=== PATIENT | male | born 1955 | race Caucasian/White ===

== ENCOUNTER 2018-12-30 21:20 | Inpatient (IN) | payer BC ==
[2018-12-30] MEDS ORDERED: NA PHOSPHATE/BIPHOS 133 ML ENEMA PR (22:00)
[2018-12-30] MEDS ORDERED: MAGNESIUM HYDROXIDE 30ML CUP GTB (22:00)
[2018-12-30] MEDS ORDERED: BISACODYL 10 MG SUPP PR (22:00)
[2018-12-30] MEDS ORDERED: PENDING SANTYL ORDER FOR WOUND CARE XX (23:00)
[2018-12-31] MEDS: ALBUTEROL 0.083% (NEB) 2.5 MG/3 ML AMP HHN ×6 (00:17→20:00)
[2018-12-31 07:21] LABS: ADD MAN DIFF? NO
[2018-12-31 07:24] LABS: BASOPHIL # 0.1 10^3/ul (0.0-0.1); BASOPHILS % 0.9 % (0.0-2.0); EOSINOPHILS # 0.8 10^3/ul (0.0-0.5); EOSINOPHILS % 6.9 % (0.0-7.0); HEMATOCRIT 40.6 % (42.0-52.0); LYMPHOCYTES # 2.6 10^3/ul (0.8-2.9); LYMPHOCYTES % 21.3 % (15.0-51.0); MEAN CORPUSCULAR HEMOGLOBIN 29.2 pg (29.0-33.0); MEAN CORPUSCULAR VOLUME 91.2 fl (82.0-101.0); MEAN PLATELET VOLUME 12.6 fl (7.4-10.4); MONOCYTES % 8.5 % (0.0-11.0); NEUTROPHIL # 7.4 10^3/ul (1.6-7.5); NEUTROPHILS % 61.8 % (39.0-77.0); PLATELET COUNT 346 10^3/UL (140-415); RED BLOOD COUNT 4.45 10^6/ul (4.70-6.10); RED CELL DISTRIBUTION WIDTH 16.4 % (11.5-14.5)
[2018-12-31 07:43] LABS: ALANINE AMINOTRANSFERASE 42 IU/L (13-69); ALBUMIN 3.6 g/dl (3.3-4.9); ALKALINE PHOSPHATASE 73 IU/L (42-121); ANION GAP 10 (5-13); ASPARTATE AMINO TRANSFERASE 28 IU/L (15-46); BILIRUBIN,INDIRECT 0.5 mg/dl (0-1.1); BILIRUBIN,TOTAL 0.5 mg/dl (0.2-1.3); BLOOD UREA NITROGEN 34 mg/dl (7-20); CALCIUM 9.6 mg/dl (8.4-10.2); CARBON DIOXIDE 28 mmol/L (21-31); CHLORIDE 106 mmol/L (97-110); CREATININE 1.09 mg/dl (0.61-1.24); Estimated GFR > 60 mL/min (>60); GLUCOSE 127 mg/dl (70-220); POTASSIUM 4.1 mmol/L (3.5-5.1); SODIUM 144 mmol/L (135-144); TOTAL PROTEIN 7.2 g/dl (6.1-8.1)
[2018-12-31] MEDS: ASPIRIN 81 MG TAB GTB (08:28)
[2018-12-31] MEDS: FAMOTIDINE 20 MG TAB GTB ×2 (08:28→21:40)
[2018-12-31] MEDS: DOCUSATE SODIUM 10 MG/ML (10ML CUP) GTB ×2 (08:28→21:40)
[2018-12-31] MEDS: NICOTINE (7 MG/24 HR) PATCH TRANSDERM (08:28)
[2018-12-31] MEDS: CHOLECALCIFEROL 2,000 UNIT CAP GTB (08:28)
[2018-12-31] MEDS: CYANOCOBALAMIN 500 MCG TAB GTB (08:28)
[2018-12-31] MEDS: CLOPIDOGREL 75 MG TAB GTB (08:28)
[2018-12-31] MEDS: LISINOPRIL 10 MG TAB GTB (08:29)
[2018-12-31] MEDS: POLYETHYLENE GLYCOL 17 GM PACKET GTB (08:29)
[2018-12-31 16:18] LABS: ADD UMIC NO; UR ASCORBIC ACID 40 mg/dL (NEGATIVE); UR BACTERIA FEW /HPF (NONE SEEN); UR BILIRUBIN (Dip) NEGATIVE (NEGATIVE); UR BLOOD (Dip) NEGATIVE (NEGATIVE); UR CLARITY SLIGHTLY CLOUDY (CLEAR); UR COLOR YELLOW (YELLOW); UR GLUCOSE (Dip) NEGATIVE (NEGATIVE); UR KETONES (Dip) NEGATIVE (NEGATIVE); UR LEUKOCYTE ESTERASE (Dip) NEGATIVE Leu/ul (NEGATIVE); UR NITRITE (Dip) NEGATIVE (NEGATIVE); UR RBC 1 /HPF (0-5); UR SPECIFIC GRAVITY (Dip) 1.019 (1.003-1.030); UR SQUAMOUS EPITHELIAL CELL FEW /HPF (FEW); UR TOTAL PROTEIN (Dip) NEGATIVE (NEGATIVE); UR UROBILINOGEN (Dip) 1+ mg/dL (NEGATIVE); UR WBC 1 /HPF (0-5)
[2018-12-31] MEDS: SENNA TAB GTB (21:40)
[2018-12-31] MEDS: ATORVASTATIN 80 MG TAB GTB (21:40)
[2019-01-01] MEDS: ALBUTEROL 0.083% (NEB) 2.5 MG/3 ML AMP HHN ×6 (01:00→20:01)
[2019-01-01 07:46] LABS: ADD MAN DIFF? NO
[2019-01-01 07:53] LABS: BASOPHIL # 0.1 10^3/ul (0.0-0.1); BASOPHILS % 0.8 % (0.0-2.0); EOSINOPHILS # 0.8 10^3/ul (0.0-0.5); EOSINOPHILS % 6.3 % (0.0-7.0); HEMOGLOBIN 13.5 g/dl (14.0-18.0); LYMPHOCYTES # 2.6 10^3/ul (0.8-2.9); LYMPHOCYTES % 19.5 % (15.0-51.0); MEAN CORPUSCULAR HEMOGLOBIN 29.2 pg (29.0-33.0); MEAN CORPUSCULAR HGB CONC 32.1 g/dl (32.0-37.0); MEAN CORPUSCULAR VOLUME 90.9 fl (82.0-101.0); MEAN PLATELET VOLUME 12.9 fl (7.4-10.4); MONOCYTE # 1.1 10^3/ul (0.3-0.9); MONOCYTES % 8.2 % (0.0-11.0); NEUTROPHIL # 8.7 10^3/ul (1.6-7.5); NEUTROPHILS % 64.8 % (39.0-77.0); PLATELET COUNT 328 10^3/UL (140-415); RED BLOOD COUNT 4.62 10^6/ul (4.70-6.10); RED CELL DISTRIBUTION WIDTH 16.3 % (11.5-14.5)
[2019-01-01 07:53] LABS: WHITE BLOOD COUNT 13.4 10^3/ul (4.8-10.8)
[2019-01-01] MEDS: CLOPIDOGREL 75 MG TAB GTB (09:25)
[2019-01-01] MEDS: DOCUSATE SODIUM 10 MG/ML (10ML CUP) GTB ×2 (09:25→20:15)
[2019-01-01] MEDS: POLYETHYLENE GLYCOL 17 GM PACKET GTB (09:25)
[2019-01-01] MEDS: NICOTINE (7 MG/24 HR) PATCH TRANSDERM (09:25)
[2019-01-01] MEDS: FAMOTIDINE 20 MG TAB GTB ×2 (09:25→20:14)
[2019-01-01] MEDS: CHOLECALCIFEROL 2,000 UNIT CAP GTB (09:25)
[2019-01-01] MEDS: LISINOPRIL 10 MG TAB GTB (09:25)
[2019-01-01] MEDS: ASPIRIN 81 MG TAB GTB (09:26)
[2019-01-01] MEDS: CYANOCOBALAMIN 500 MCG TAB GTB (09:26)
[2019-01-01] MEDS ORDERED: GLUCOSE GEL 15 GRAM TUBE PO ×2 (14:30)
[2019-01-01] MEDS ORDERED: GLUCOSE GEL 15 GRAM TUBE BUCCAL (14:30)
[2019-01-01] MEDS ORDERED: DEXTROSE 50% 50 ML SYRINGE IV ×2 (14:30)
[2019-01-01] MEDS ORDERED: GLUCAGON 1 MG INJ IM (14:30)
[2019-01-01] MEDS: INSULIN ASPART [NOVOLOG] 3 ML PEN SC (17:42)
[2019-01-01] MEDS: SENNA TAB GTB (20:14)
[2019-01-01] MEDS: ACETAMINOPHEN 325 MG TAB PEG (20:14)
[2019-01-01] MEDS: ATORVASTATIN 80 MG TAB GTB (20:14)
[2019-01-01] MEDS: OLANZAPINE 2.5 MG TAB GTB (22:22)
[2019-01-02] MEDS: ALBUTEROL 0.083% (NEB) 2.5 MG/3 ML AMP HHN ×5 (01:00→20:06)
[2019-01-02] MEDS: INSULIN ASPART [NOVOLOG] 3 ML PEN SC ×2 (06:00)
[2019-01-02] MEDS: LISINOPRIL 10 MG TAB GTB (09:00)
[2019-01-02] MEDS: NICOTINE (7 MG/24 HR) PATCH TRANSDERM (10:00)
[2019-01-02] MEDS: DOCUSATE SODIUM 10 MG/ML (10ML CUP) GTB ×2 (10:00→20:57)
[2019-01-02] MEDS: FAMOTIDINE 20 MG TAB GTB ×2 (10:01→21:09)
[2019-01-02] MEDS: ASPIRIN 81 MG TAB GTB (10:01)
[2019-01-02] MEDS: CLOPIDOGREL 75 MG TAB GTB (10:01)
[2019-01-02] MEDS: CYANOCOBALAMIN 500 MCG TAB GTB (10:01)
[2019-01-02] MEDS: CHOLECALCIFEROL 2,000 UNIT CAP GTB (10:01)
[2019-01-02] MEDS: POLYETHYLENE GLYCOL 17 GM PACKET GTB (10:05)
[2019-01-02] MEDS: SENNA TAB GTB (21:00)
[2019-01-02] MEDS: ATORVASTATIN 80 MG TAB GTB (21:08)
[2019-01-03] MEDS: ACETAMINOPHEN 325 MG TAB PEG (00:19)
[2019-01-03] MEDS: ALBUTEROL 0.083% (NEB) 2.5 MG/3 ML AMP HHN ×8 (01:00→20:33)
[2019-01-03] MEDS: DOCUSATE SODIUM 10 MG/ML (10ML CUP) GTB ×2 (08:53→21:09)
[2019-01-03] MEDS: POLYETHYLENE GLYCOL 17 GM PACKET GTB (08:54)
[2019-01-03] MEDS: CHOLECALCIFEROL 2,000 UNIT CAP GTB (08:55)
[2019-01-03] MEDS: ASPIRIN 81 MG TAB GTB (08:55)
[2019-01-03] MEDS: CYANOCOBALAMIN 500 MCG TAB GTB (08:55)
[2019-01-03] MEDS: CLOPIDOGREL 75 MG TAB GTB (08:55)
[2019-01-03] MEDS: FAMOTIDINE 20 MG TAB GTB ×2 (08:55→21:04)
[2019-01-03] MEDS: NICOTINE (7 MG/24 HR) PATCH TRANSDERM (08:57)
[2019-01-03] MEDS: LISINOPRIL 10 MG TAB GTB (08:57)
[2019-01-03 18:11] LABS: ADD UMIC NO; UR AMORPHOUS CRYSTAL FEW /HPF (NONE SEEN); UR ASCORBIC ACID 40 mg/dL (NEGATIVE); UR BACTERIA FEW /HPF (NONE SEEN); UR BILIRUBIN (Dip) NEGATIVE (NEGATIVE); UR BLOOD (Dip) NEGATIVE (NEGATIVE); UR CLARITY SLIGHTLY CLOUDY (CLEAR); UR COLOR YELLOW (YELLOW); UR GLUCOSE (Dip) NEGATIVE (NEGATIVE); UR KETONES (Dip) NEGATIVE (NEGATIVE); UR LEUKOCYTE ESTERASE (Dip) NEGATIVE Leu/ul (NEGATIVE); UR NITRITE (Dip) NEGATIVE (NEGATIVE); UR RBC 15 /HPF (0-5); UR SPECIFIC GRAVITY (Dip) 1.017 (1.003-1.030); UR SQUAMOUS EPITHELIAL CELL FEW /HPF (FEW); UR TOTAL PROTEIN (Dip) NEGATIVE (NEGATIVE); UR UROBILINOGEN (Dip) 1+ mg/dL (NEGATIVE); UR WBC 3 /HPF (0-5)
[2019-01-03] MEDS: ACETAMINOPHEN 500 MG TAB PO (18:46)
[2019-01-03] MEDS: SENNA TAB GTB (21:00)
[2019-01-03] MEDS: ATORVASTATIN 80 MG TAB GTB (21:05)
[2019-01-04] MEDS: ALBUTEROL 0.083% (NEB) 2.5 MG/3 ML AMP HHN ×6 (01:18→20:15)
[2019-01-04] MEDS: LISINOPRIL 10 MG TAB GTB (09:00)
[2019-01-04] MEDS: DOCUSATE SODIUM 10 MG/ML (10ML CUP) GTB ×2 (09:00→20:38)
[2019-01-04] MEDS: CLOPIDOGREL 75 MG TAB GTB (09:43)
[2019-01-04] MEDS: CHOLECALCIFEROL 2,000 UNIT CAP GTB (09:43)
[2019-01-04] MEDS: CYANOCOBALAMIN 500 MCG TAB GTB (09:43)
[2019-01-04] MEDS: FAMOTIDINE 20 MG TAB GTB ×2 (09:44→20:38)
[2019-01-04] MEDS: ASPIRIN 81 MG TAB GTB (09:44)
[2019-01-04] MEDS: NICOTINE (7 MG/24 HR) PATCH TRANSDERM (09:44)
[2019-01-04] MEDS: POLYETHYLENE GLYCOL 17 GM PACKET GTB (09:45)
[2019-01-04] MEDS: BARIUM SULFATE 135 ML (E-Z HD) PO (10:32)
[2019-01-04] MEDS: FOSFOMYCIN 3 GM PACKET PO (19:37)
[2019-01-04] MEDS: SENNA TAB GTB (20:38)
[2019-01-04] MEDS: ATORVASTATIN 80 MG TAB GTB (20:39)
[2019-01-05] MEDS: ALBUTEROL 0.083% (NEB) 2.5 MG/3 ML AMP HHN ×6 (01:19→20:39)
[2019-01-05] MEDS: DOCUSATE SODIUM 10 MG/ML (10ML CUP) GTB ×2 (09:00→21:00)
[2019-01-05] MEDS: CYANOCOBALAMIN 500 MCG TAB GTB (09:26)
[2019-01-05] MEDS: POLYETHYLENE GLYCOL 17 GM PACKET GTB (09:26)
[2019-01-05] MEDS: ASPIRIN 81 MG TAB GTB (09:27)
[2019-01-05] MEDS: CLOPIDOGREL 75 MG TAB GTB (09:27)
[2019-01-05] MEDS: NICOTINE (7 MG/24 HR) PATCH TRANSDERM (09:27)
[2019-01-05] MEDS: CHOLECALCIFEROL 2,000 UNIT CAP GTB (09:27)
[2019-01-05] MEDS: FAMOTIDINE 20 MG TAB GTB ×2 (09:27→21:23)
[2019-01-05] MEDS: LISINOPRIL 10 MG TAB GTB (09:28)
[2019-01-05] MEDS: ZYVOX 600 MG TAB PO ×2 (13:07→21:23)
[2019-01-05] MEDS: SENNA TAB GTB (21:00)
[2019-01-05] MEDS: ATORVASTATIN 80 MG TAB GTB (21:23)
[2019-01-06] MEDS: ALBUTEROL 0.083% (NEB) 2.5 MG/3 ML AMP HHN ×6 (01:00→20:18)
[2019-01-06] MEDS: NICOTINE (7 MG/24 HR) PATCH TRANSDERM (08:28)
[2019-01-06] MEDS: ASPIRIN 81 MG TAB GTB (08:29)
[2019-01-06] MEDS: FAMOTIDINE 20 MG TAB GTB ×2 (08:29→21:23)
[2019-01-06] MEDS: CHOLECALCIFEROL 2,000 UNIT CAP GTB (08:29)
[2019-01-06] MEDS: POLYETHYLENE GLYCOL 17 GM PACKET GTB (08:29)
[2019-01-06] MEDS: CYANOCOBALAMIN 500 MCG TAB GTB (08:29)
[2019-01-06] MEDS: DOCUSATE SODIUM 10 MG/ML (10ML CUP) GTB ×2 (08:29→21:00)
[2019-01-06] MEDS: ZYVOX 600 MG TAB PO ×2 (08:32→21:19)
[2019-01-06] MEDS: CLOPIDOGREL 75 MG TAB GTB (08:32)
[2019-01-06] MEDS: LISINOPRIL 10 MG TAB GTB (08:33)
[2019-01-06] MEDS: SENNA TAB GTB (21:00)
[2019-01-06] MEDS: ATORVASTATIN 80 MG TAB GTB (21:19)
[2019-01-07] MEDS: ALBUTEROL 0.083% (NEB) 2.5 MG/3 ML AMP HHN ×6 (01:30→21:41)
[2019-01-07] MEDS: DOCUSATE SODIUM 10 MG/ML (10ML CUP) GTB ×2 (09:00→20:33)
[2019-01-07] MEDS: CYANOCOBALAMIN 500 MCG TAB GTB (10:27)
[2019-01-07] MEDS: FAMOTIDINE 20 MG TAB GTB ×2 (10:27→20:33)
[2019-01-07] MEDS: POLYETHYLENE GLYCOL 17 GM PACKET GTB (10:29)
[2019-01-07] MEDS: ASPIRIN 81 MG TAB GTB (10:29)
[2019-01-07] MEDS: CHOLECALCIFEROL 2,000 UNIT CAP GTB (10:29)
[2019-01-07] MEDS: LISINOPRIL 10 MG TAB GTB (10:29)
[2019-01-07] MEDS: CLOPIDOGREL 75 MG TAB GTB (10:29)
[2019-01-07] MEDS: ZYVOX 600 MG TAB PO ×2 (10:30→20:26)
[2019-01-07] MEDS: NICOTINE (7 MG/24 HR) PATCH TRANSDERM (10:46)
[2019-01-07] MEDS ORDERED: BACITRACIN TOP (13:00)
[2019-01-07] MEDS ORDERED: BACITRACIN 0.9 GM OINT TOP (13:00)
[2019-01-07] MEDS: BACITRACIN TOP ×2 (19:29→20:26)
[2019-01-07] MEDS: SENNA TAB GTB (20:25)
[2019-01-07] MEDS: ATORVASTATIN 80 MG TAB GTB (20:25)
[2019-01-07] MEDS ORDERED: GUAIFENESIN/DM 5ML CUP PO (22:00)
[2019-01-08] MEDS: ALBUTEROL 0.083% (NEB) 2.5 MG/3 ML AMP HHN ×4 (01:45→13:59)
[2019-01-08] MEDS: BACITRACIN TOP (06:38)
[2019-01-08] MEDS: POLYETHYLENE GLYCOL 17 GM PACKET GTB (08:26)
[2019-01-08] MEDS: ASPIRIN 81 MG TAB GTB (08:29)
[2019-01-08] MEDS: ZYVOX 600 MG TAB PO (08:29)
[2019-01-08] MEDS: FAMOTIDINE 20 MG TAB GTB (08:29)
[2019-01-08] MEDS: DOCUSATE SODIUM 10 MG/ML (10ML CUP) GTB (08:30)
[2019-01-08] MEDS: CYANOCOBALAMIN 500 MCG TAB GTB (08:30)
[2019-01-08] MEDS: CHOLECALCIFEROL 2,000 UNIT CAP GTB (08:30)
[2019-01-08] MEDS: CLOPIDOGREL 75 MG TAB GTB (08:30)
[2019-01-08] MEDS: LISINOPRIL 10 MG TAB GTB (08:31)
[2019-01-08] MEDS: NICOTINE (7 MG/24 HR) PATCH TRANSDERM (08:35)
== END 2019-01-08 16:09 | DRG 57 ==
LOC: VRC 01-01 13:37
PROC: F07Z9FZ Gait Training/Functional Ambulation Treatment using Assistive, Adaptive, Supportive or Protective Equipment (ICD-10-PCS; principal; 2018-12-30)
PROC: F07Z8FZ Transfer Training Treatment using Assistive, Adaptive, Supportive or Protective Equipment (ICD-10-PCS; 2018-12-30)
PROC: F07Z5FZ Bed Mobility Treatment using Assistive, Adaptive, Supportive or Protective Equipment (ICD-10-PCS; 2018-12-30)
PROC: F08Z2FZ Grooming/Personal Hygiene Treatment using Assistive, Adaptive, Supportive or Protective Equipment (ICD-10-PCS; 2018-12-30)
PROC: F08Z0FZ Bathing/Showering Techniques Treatment using Assistive, Adaptive, Supportive or Protective Equipment (ICD-10-PCS; 2018-12-30)
PROC: F08Z1FZ Dressing Techniques Treatment using Assistive, Adaptive, Supportive or Protective Equipment (ICD-10-PCS; 2018-12-30)
DX: I69.354 Hemiplegia and hemiparesis following cerebral infarction affecting left non-dominant side (principal); N39.0 Urinary tract infection, site not specified; R13.10 Dysphagia, unspecified; Z93.1 Gastrostomy status; E78.5 Hyperlipidemia, unspecified; I10 Essential (primary) hypertension; I25.10 Atherosclerotic heart disease of native coronary artery without angina pectoris; I25.2 Old myocardial infarction; B95.2 Enterococcus as the cause of diseases classified elsewhere; Z16.21 Resistance to vancomycin; F06.31 Mood disorder due to known physiological condition with depressive features; Z95.5 Presence of coronary angioplasty implant and graft; K29.70 Gastritis, unspecified, without bleeding; Z86.19 Personal history of other infectious and parasitic diseases; Z87.01 Personal history of pneumonia (recurrent); Z79.82 Long term (current) use of aspirin
CPT/HCPCS: 71045; 74230; 80053; 81001; 81003; 82962; 85025; 87081; 87086; 92507; 92523; 92526; 92610; 92611; 94640; 94664; 97110; 97112; 97163; 97167; 97530; 97535; 97542